=== PATIENT | female | born 1965 | race Hispanic/Latino ===

== ENCOUNTER 2022-04-15 12:50 | Outpatient (CLI) | payer BC ==
[2022-04-15 13:52] LABS: #Basophils 0.1 10x3/uL (0.0-0.2); #Eosinphils 0.2 10x3/uL (0.0-0.5); #Monocytes 0.6 10x3/uL (0.0-1.1); #Neutrophils 5.9 10x3/uL (1.5-8.4); %Basophils 0.8 % (0.0-2.0); %Eosinophils 2.1 % (0.0-6.0); %Lymphocytes 33.3 % (18.0-47.0); %Monocytes 5.6 % (0.0-10.0); %Neutrophils 57.7 % (40.0-75.0); Hemoglobin 13.8 g/dL (12.0-15.5); Mean Corpuscular HGB CONC 34.8 g/dL (32.0-36.0); Mean Corpuscular Hemoglobin 31.7 pg (27.0-33.0); Mean Platelet Volume 9.9 fl (7.4-10.4); Platelet Count 249 10x3/uL (150-450); RBC Distribution Width 12.8 % (11.5-14.5); Red Blood Cell (RBC) Count 4.35 10x6/uL (3.90-5.03); White Blood Cell (WBC) Count 10.3 10x3/uL (3.5-10.5)
[2022-04-15 14:09] LABS: Anion Gap 16 mmol/L (10-20); BUN (Urea Nitrogen) 15 mg/dL (9.8-20.1); Calc. Creatinine Clearance 0 mL/min (70-130); Calcium 9.5 mg/dL (7.8-10.44); Carbon Dioxide 21 mmol/L (22-29); Chloride 107 mmol/L (98-107); Glucose 113 mg/dL (70-105); Potassium 3.7 mmol/L (3.5-5.1); Sodium 140 mmol/L (136-145)
[2022-04-16 00:50] LABS: SARS-CoV-2 PCR by NAA Not Detected (NotDetected)
== END 2022-04-15 12:51 | disposition home or self-care (01) ==
LOC: LABBT 12:50
PROVIDERS: ATTEND Orthopaedic Surgery
DX: Z01.812 Encounter for preprocedural laboratory examination (principal); M75.112 Incomplete rotator cuff tear or rupture of left shoulder, not specified as traumatic; S46.212A Strain of muscle, fascia and tendon of other parts of biceps, left arm, initial encounter; Z20.822 Contact with and (suspected) exposure to COVID-19
CPT/HCPCS: 80048; 85025; U0003; U0005

== ENCOUNTER 2022-04-18 06:04 | Day surgery (SDC) | payer BC ==
[2022-04-16 15:37] VITALS: BMI 26.3
[2022-04-18] MEDS ORDERED: Sodium Chloride 0.9% 100 ML ONE ×2 (06:17→07:19)
[2022-04-18] MEDS ORDERED: Tranexamic Acid 1,000 MG/10 ML VIAL ONE (06:17)
[2022-04-18] MEDS ORDERED: Vancomycin 1 GM/200 ML BAG ONE (06:17)
[2022-04-18] MEDS ORDERED: fentaNYL Citrate/PF 100 MCG/2 ML SYRINGE ONE ×2 (06:39→08:50)
[2022-04-18] MEDS ORDERED: Dexmedetomidine 200 MCG/2 ML VIAL ONE (06:39)
[2022-04-18] MEDS ORDERED: Lidocaine 1% (PF) 30 ML VIAL ONE (06:59)
[2022-04-18] MEDS ORDERED: Fentanyl 100 MCG/2 ML VIAL ONE ×2 (06:59→09:28)
[2022-04-18] MEDS ORDERED: Midazolam HCl 2 mg/2 ml Vial ONE (06:59)
[2022-04-18] MEDS ORDERED: CEFAZOLIN 2 GM VIAL ONE (07:19)
[2022-04-18] MEDS ORDERED: PHENYLEPHRINE-NS 100 MCG/ML 10 ML SYRINGE ONE (07:34)
[2022-04-18] MEDS ORDERED: Lidocaine 1% PF 5 ML VIAL ONE (07:34)
[2022-04-18] MEDS ORDERED: Ondansetron PF 4 MG/2 ML Vial ONE (07:34)
[2022-04-18] MEDS ORDERED: PROPOFOL 200 MG/20 ML VIAL ONE (07:34)
[2022-04-18] MEDS ORDERED: Dexamethasone 20 MG/5 ML VIAL ONE (07:34)
[2022-04-18] MEDS ORDERED: Ketorolac Tromethamine 30 MG/ML VIAL ONE (07:34)
[2022-04-18] MEDS ORDERED: Ropivacaine 0.5% HCl/PF (150 MG/30 ML VIAL) ONE (07:34)
[2022-04-18] MEDS ORDERED: Glycopyrrolate 0.2 MG/ML 5 ML SYRINGE ONE (07:34)
[2022-04-18] MEDS ORDERED: Promethazine HCl 25 MG/ML VIAL IM PRN (08:30)
[2022-04-18] MEDS ORDERED: Ropivacaine 0.2% 550 ML 550 ML NERVE BLCK SCH (08:30)
[2022-04-18] MEDS ORDERED: HYDROcodone/Acetaminophen 5/325 mg Tablet PO PRN ×2 (08:30)
[2022-04-18] MEDS ORDERED: Zolpidem Tartrate 5 MG TAB PO PRN (08:30)
[2022-04-18] MEDS ORDERED: traMADol HCl 50 MG TAB PO PRN ×2 (08:30)
[2022-04-18] MEDS ORDERED: Ondansetron PF 4 MG/2 ML Vial IVP PRN (08:30)
== END 2022-04-18 12:05 | disposition home or self-care (01) ==
LOC: SDC 06:04
PROVIDERS: ATTEND Orthopaedic Surgery
PROC: 0LQ20ZZ Repair Left Shoulder Tendon, Open Approach (ICD-10-PCS; principal; 2022-04-18)
PROC: 0RQH0ZZ Repair Left Acromioclavicular Joint, Open Approach (ICD-10-PCS; principal; 2022-04-18)
DX: M75.112 Incomplete rotator cuff tear or rupture of left shoulder, not specified as traumatic (principal); S46.212A Strain of muscle, fascia and tendon of other parts of biceps, left arm, initial encounter; F17.200 Nicotine dependence, unspecified, uncomplicated
CPT/HCPCS: A4306; C1713; J1100; J1885; J2001; J2250; J2405; J2704; J2795; J3010; J3370; J3490

== ENCOUNTER 2024-05-10 15:46 | Outpatient (CLI) | payer BC ==
[2024-05-10 17:03] LABS: #Basophils 0.07 10x3/uL (0.0-0.2); #Eosinphils 0.17 10x3/uL (0.0-0.5); #Neutrophils 4.48 10x3/uL (1.5-8.4); %Basophils 0.8 % (0.0-2.0); %Monocytes 5.9 % (0.0-10.0); %Neutrophils 53.1 % (40.0-75.0); Hematocrit 38.7 % (34.9-44.5); Hemoglobin 13.7 g/dL (12.0-15.5); Mean Corpuscular HGB CONC 35.4 g/dL (32.0-36.0); Mean Corpuscular Hemoglobin 30.9 pg (27.0-33.0); Mean Corpuscular Volume 87.4 fL (81.6-98.3); Mean Platelet Volume 9.9 fL (7.4-10.4); Platelet Count 216 10x3/uL (150-450); RBC Distribution Width 13.1 % (11.5-14.5); Red Blood Cell (RBC) Count 4.43 10x6/uL (3.90-5.03); White Blood Cell (WBC) Count 8.5 10x3/uL (3.5-10.5)
[2024-05-10 17:16] LABS: Anion Gap 13 mmol/L (10-20); BUN (Urea Nitrogen) 12 mg/dL (9.8-20.1); Calc. Creatinine Clearance 0 mL/min (70-130); Calcium 9.7 mg/dL (7.8-10.44); Carbon Dioxide 22 mmol/L (22-29); Chloride 108 mmol/L (98-107); Estimated GFR 92; Glucose 87 mg/dL (70-105); Potassium 3.6 mmol/L (3.5-5.1); Sodium 139 mmol/L (136-145)
== END 2024-05-10 15:47 | disposition home or self-care (01) ==
LOC: LABBT 15:46
PROVIDERS: ATTEND Orthopaedic Surgery
DX: Z01.818 Encounter for other preprocedural examination (principal); G56.01 Carpal tunnel syndrome, right upper limb
CPT/HCPCS: 80048; 85025; 93005; 93010

== ENCOUNTER 2024-05-14 09:03 | Day surgery (SDC) | payer BC ==
[2024-05-10 15:59] VITALS: BMI 23.2
[2024-05-14] MEDS ORDERED: Lidocaine 1% (PF) 30 ML VIAL ONE (11:54)
[2024-05-14] MEDS ORDERED: PROPOFOL 20 ML ONE (12:00)
[2024-05-14] MEDS ORDERED: CEFAZOLIN 2 GM VIAL ONE (12:07)
[2024-05-14] MEDS ORDERED: Sodium Chloride 0.9% 100 ML ONE (12:07)
[2024-05-14] MEDS ORDERED: fentaNYL PF 100 MCG/2 ML SYRINGE ONE (12:16)
[2024-05-14] MEDS ORDERED: Ondansetron PF 4 MG/2 ML Vial ONE (12:20)
[2024-05-14] MEDS ORDERED: Glycopyrrolate 0.2 MG/ML 5 ML SYRINGE ONE (12:20)
[2024-05-14] MEDS ORDERED: Dexamethasone 20 MG/5 ML VIAL ONE (12:20)
[2024-05-14] MEDS ORDERED: PHENYLEPHRINE-NS 100 MCG/ML 10 ML SYRINGE ONE (12:35)
== END 2024-05-14 14:35 | disposition home or self-care (01) ==
LOC: SDC 09:03
PROVIDERS: ATTEND Orthopaedic Surgery
PROC: 01N50ZZ Release Median Nerve, Open Approach (ICD-10-PCS; principal; 2024-05-14)
DX: G56.01 Carpal tunnel syndrome, right upper limb (principal); F17.200 Nicotine dependence, unspecified, uncomplicated
CPT/HCPCS: A6223; J1100; J2001; J2405; J2704; J3490

== ENCOUNTER 2024-06-16 15:58 | Outpatient (CLI) | payer BC ==
[2024-06-16 16:46] LABS: #Basophils 0.06 10x3/uL (0.0-0.2); #Eosinphils 0.19 10x3/uL (0.0-0.5); #Monocytes 0.48 10x3/uL (0.0-1.1); #Neutrophils 3.11 10x3/uL (1.5-8.4); %Basophils 0.9 % (0.0-2.0); %Lymphocytes 39.7 % (18.0-47.0); %Monocytes 7.5 % (0.0-10.0); %Neutrophils 48.7 % (40.0-75.0); Hematocrit 37.9 % (34.9-44.5); Hemoglobin 13.7 g/dL (12.0-15.5); Mean Corpuscular HGB CONC 36.1 g/dL (32.0-36.0); Mean Corpuscular Hemoglobin 31.3 pg (27.0-33.0); Mean Corpuscular Volume 86.5 fL (81.6-98.3); Mean Platelet Volume 10.4 fL (7.4-10.4); Platelet Count 196 10x3/uL (150-450); RBC Distribution Width 12.7 % (11.5-14.5); Red Blood Cell (RBC) Count 4.38 10x6/uL (3.90-5.03); White Blood Cell (WBC) Count 6.4 10x3/uL (3.5-10.5)
[2024-06-16 17:32] LABS: Anion Gap 11 mmol/L (10-20); BUN (Urea Nitrogen) 10 mg/dL (9.8-20.1); Calc. Creatinine Clearance 0 mL/min (70-130); Calcium 9.9 mg/dL (7.8-10.44); Carbon Dioxide 24 mmol/L (22-29); Chloride 108 mmol/L (98-107); Estimated GFR 63; Glucose 108 mg/dL (70-105); Potassium 3.8 mmol/L (3.5-5.1); Sodium 139 mmol/L (136-145)
== END 2024-06-16 15:59 | disposition home or self-care (01) ==
LOC: LABBT 15:58
PROVIDERS: ATTEND Orthopaedic Surgery
DX: Z01.818 Encounter for other preprocedural examination (principal); G56.02 Carpal tunnel syndrome, left upper limb
CPT/HCPCS: 80048; 85025; 93005; 93010

== ENCOUNTER 2024-06-18 09:00 | Day surgery (SDC) | payer BC ==
[2024-06-16 16:17] VITALS: BMI 25.6
[2024-06-18] MEDS ORDERED: CEFAZOLIN 2 GM VIAL ONE (09:29)
[2024-06-18] MEDS ORDERED: Sodium Chloride 0.9% 100 ML ONE (09:29)
[2024-06-18] MEDS ORDERED: Lidocaine 1% (PF) 30 ML VIAL ONE (11:20)
[2024-06-18] MEDS ORDERED: Midazolam HCl 2 mg/2 ml Vial ONE (11:29)
[2024-06-18] MEDS ORDERED: Propofol 500 MG/50 ML VIAL ONE (11:31)
[2024-06-18] MEDS ORDERED: fentaNYL 50 mcg/mL 1 mL Vial ONE ×2 (11:34→12:10)
[2024-06-18] MEDS ORDERED: Lidocaine 1% PF 5 ML VIAL ONE (11:34)
[2024-06-18] MEDS ORDERED: PROPOFOL 20 ML ONE ×2 (12:04→12:05)
== END 2024-06-18 14:15 | disposition home or self-care (01) ==
LOC: SDC 09:00
PROVIDERS: ATTEND Orthopaedic Surgery
PROC: 01N50ZZ Release Median Nerve, Open Approach (ICD-10-PCS; principal; 2024-06-18)
DX: G56.02 Carpal tunnel syndrome, left upper limb (principal); F17.200 Nicotine dependence, unspecified, uncomplicated; M19.90 Unspecified osteoarthritis, unspecified site; Z79.899 Other long term (current) drug therapy; Z98.890 Other specified postprocedural states
CPT/HCPCS: A6223; J2001; J2250; J2704; J3010; J3490